=== PATIENT | male | born 1995 ===

== ENCOUNTER 2023-01-28 16:46 | Emergency (ER) | payer SELFPAY ==
[~2023-01-28] VITALS: Ht 167.6 cm; Wt 71.8 kg
[2023-01-28 16:55] VITALS: BP 112/63
== END 2023-01-28 19:11 | disposition left against medical advice (07) ==
LOC: EMS 16:55
DX: M79.672 Pain in left foot (principal); Z53.21 Procedure and treatment not carried out due to patient leaving prior to being seen by health care provider
CPT/HCPCS: 99281; Z7502